=== PATIENT | female | born 1990 | race Two or more races ===

== ENCOUNTER 2017-12-03 11:22 | Emergency (ER) | payer MEDICAID ==
[~2017-12-03] VITALS: Ht 154.9 cm; Wt 45.0 kg
[~2017-12-03 11:22] MED LIST: ASEN5TAB SL; CHOL10002 PO; DIVA125T3 PO; DIVA250T6 PO; LIT300C PO; SERT100T10 PO; TOPI25TA15 PO; flovent INH
[2017-12-03 11:33] VITALS: BP 98/56
== END 2017-12-03 11:51 | disposition home or self-care (01) ==
LOC: ER 11:23
DX: S61.512D Laceration without foreign body of left wrist, subsequent encounter (principal); Z48.02 Encounter for removal of sutures; G43.909 Migraine, unspecified, not intractable, without status migrainosus; J45.909 Unspecified asthma, uncomplicated; G89.29 Other chronic pain; F12.10 Cannabis abuse, uncomplicated; Z88.2 Allergy status to sulfonamides; Z88.0 Allergy status to penicillin; Z88.1 Allergy status to other antibiotic agents; Z88.8 Allergy status to other drugs, medicaments and biological substances; Z91.018 Allergy to other foods; X78.0XXD Intentional self-harm by sharp glass, subsequent encounter
CPT/HCPCS: 99281

== ENCOUNTER 2018-06-20 17:46 | Emergency (ER) | payer MEDICAID ==
[~2018-06-20] VITALS: Ht 154.9 cm; Wt 43.6 kg
[~2018-06-20 17:46] MED LIST changes: +DIVA-74 PO; -DIVA125T3 PO; +DIVA125T31 PO; -DIVA250T6 PO
[2018-06-20] MEDS ORDERED: normal saline 1000ML IV soln IVB ONE (19:05)
[2018-06-20 19:40] LABS: CLARITY,URINE CLEAR (Clear); COLOR,URINE YELLOW (Yellow); GLUCOSE, URINE NEGATIVE (Neg); KETONES,URINE TRACE mg/dl (Neg); LEUKOCYTE ESTERASE ,URINE NEGATIVE (Neg); NITRITES, URINE NEGATIVE (Neg); OCCULT BLOOD,URINE NEGATIVE (Neg); PROTEIN,URINE NEGATIVE (Neg); UROBILINOGEN,URINE 0.2 E.U/dL (0.2-1.0)
[2018-06-20 19:41] LABS: URINE HCG NEGATIVE (NEG)
[2018-06-20 19:45] LABS: UA COLLECTION TYPE CLN CATCH MIDSTREAM
[2018-06-20 19:48] LABS: BASOPHILS % (AUTO) 0.3 % (0-1); EOSINOPHILS # (AUTO) 0.1 X10'3 (0-0.9); EOSINOPHILS % (AUTO) 0.9 % (0-6); HEMATOCRIT 30.7 % (35.0-45.0); HEMOGLOBIN 9.6 g/dl (12.0-16.0); LYMPHOCYTES # (AUTO) 0.9 X10'3 (1.1-4.8); LYMPHOCYTES % (AUTO) 13.8 % (21-51); MEAN CORPUSCULAR HEMOGLOBIN 23.2 PG (27.0-31.0); MEAN CORPUSCULAR HGB CONC 31.1 % (33.0-36.5); MEAN CORPUSCULAR VOLUME 74.4 FL (78-98); MEAN PLATELET VOLUME 10.7 FL (7.4-10.4); MONOCYTES # (AUTO) 0.5 X10'3 (0-0.9); MONOCYTES % (AUTO) 7.4 % (2-12); NEUTROPHILS # (AUTO) 5.1 X10'3 (1.8-7.7); NEUTROPHILS % (AUTO) 77.6 % (42-75); PLATELET COUNT 263 X10'3 (140-440); RED BLOOD COUNT 4.13 X10'6 (4.20-5.60); RED CELL DISTRIBUTION WIDTH 19.7 % (11.5-14.5); WHITE BLOOD COUNT 6.6 X10'3 (4.5-11.0)
[2018-06-20 19:51] LABS: URINE AMPHETAMINE SCREEN NEGATIVE (Neg); URINE BARBITUATE SCREEN NEGATIVE (Neg); URINE BENZODIAZEPINES SCREEN NEGATIVE (Neg); URINE CANNABINOID SCREEN POSITIVE (Neg); URINE COCAINE SCREEN NEGATIVE (Neg); URINE METHADONE SCREEN NEGATIVE (Neg); URINE OPIATE SCREEN NEGATIVE (Neg); URINE PHENCYCLIDINE SCREEN NEGATIVE (Neg)
[2018-06-20 20:05] LABS: ALANINE AMINOTRANSFERASE 16 U/L (12-78); ALBUMIN 3.4 G/DL (3.4-5.0); ALKALINE PHOSPHATASE 69 IU/L (46-116); ANION GAP 9 (8-16); ASPARTATE AMINO TRANSFERASE 14 U/L (10-37); BILIRUBIN,TOTAL 0.4 MG/DL (0.1-1.0); BLOOD UREA NITROGEN 9 MG/DL (7-18); BUN/CREATININE RATIO 13.6 (6.6-38.0); CALCIUM 8.3 MG/DL (8.5-10.1); CHLORIDE 107 MMOL/L (99-107); CREATININE 0.66 MG/DL (0.40-0.90); GLUCOSE 94 MG/DL (70-104); POTASSIUM 3.3 MMOL/L (3.5-5.1); SODIUM 140 MMOL/L (135-145); TOTAL CARBON DIOXIDE 23.8 MMOL/L (24-32); TOTAL PROTEIN 6.7 G/DL (6.4-8.2); eGFR > 90 ML/MIN
[2018-06-20] MEDS ORDERED: potassium Cl 20 mEq SR tablet PO STA (20:29)
[2018-06-20 20:46] VITALS: BP 145/90
[2018-06-20 22:35] LABS: ANISOCYTOSIS 2+; PLATELET ESTIMATE NORMAL
[2018-06-20 22:36] LABS: ELLIPTOCYTES 1+; TEAR DROP CELLS FEW
== END 2018-06-20 20:47 | disposition home or self-care (01) ==
LOC: ER 17:47
DX: D64.9 Anemia, unspecified (principal); P74.32 Hypokalemia of newborn; F41.9 Anxiety disorder, unspecified; M54.5 Low back pain; R10.84 Generalized abdominal pain; R11.2 Nausea with vomiting, unspecified; J45.909 Unspecified asthma, uncomplicated; G43.909 Migraine, unspecified, not intractable, without status migrainosus; F32.9 Major depressive disorder, single episode, unspecified; F12.90 Cannabis use, unspecified, uncomplicated; Z88.0 Allergy status to penicillin; Z88.1 Allergy status to other antibiotic agents; Z88.2 Allergy status to sulfonamides; Z88.8 Allergy status to other drugs, medicaments and biological substances; Z91.018 Allergy to other foods; Z79.899 Other long term (current) drug therapy
CPT/HCPCS: 36415; 80053; 80305; 81003; 81025; 85025; 96360; 99284; J7030

== ENCOUNTER 2018-08-09 18:05 | Emergency (ER) | payer MEDICAID ==
[~2018-08-09] VITALS: Ht 154.9 cm; Wt 48.0 kg
[2018-08-09] MEDS ORDERED: TETanus/Pertussis (Acell)/Diphther VAC/PF (Tdap-Adult) 0.5ml syringe IM ONE (18:15)
[2018-08-09] MEDS ORDERED: LORazepam 1 MG tablet PO ONE (18:25)
--- NOTE | 2018-08-09 18:25 | NUR ---
OFFICER ROSA M AT PT BEDSIDE GETTING REPORT. BADGE NUMBER [id number]
--- NOTE | 2018-08-09 18:29 | NUR ---
PT TO CT
[2018-08-09] MEDS ORDERED: ketorolac trometh. 30mg/ml inj. IV ONE (19:00)
[2018-08-09] MEDS ORDERED: ketorolac tromethamine 15mg/ml inj. IV ONE (19:00)
--- NOTE | 2018-08-09 19:20 | NUR ---
patients puncture wound on forehead irrigated with 50cc of NS closed with dermabond
[2018-08-09 20:18] VITALS: BP 128/78
== END 2018-08-09 20:38 | disposition home or self-care (01) ==
LOC: ER 18:06
DX: S00.03XA Contusion of scalp, initial encounter (principal); S00.81XA Abrasion of other part of head, initial encounter; M25.521 Pain in right elbow; J45.909 Unspecified asthma, uncomplicated; G89.29 Other chronic pain; F12.90 Cannabis use, unspecified, uncomplicated; Z88.0 Allergy status to penicillin; Z88.1 Allergy status to other antibiotic agents; Z88.8 Allergy status to other drugs, medicaments and biological substances; Z91.018 Allergy to other foods; Z79.899 Other long term (current) drug therapy; Y08.89XA Assault by other specified means, initial encounter; Y93.89 Activity, other specified; Y92.89 Other specified places as the place of occurrence of the external cause; Y99.8 Other external cause status
CPT/HCPCS: 12013; 29125; 70450; 72125; 73080; 73090; 90471; 90715; 96374; 99284; J1885

== ENCOUNTER 2018-10-08 09:46 | Emergency (ER) | payer MEDICAID ==
[~2018-10-08] VITALS: Ht 156.2 cm; Wt 46.1 kg
[2018-10-08 09:57] VITALS: BP 115/68
[2018-10-08] MEDS ORDERED: ibuprofen tablet 400 MG TABLET PO ONE (10:10)
[2018-10-08] MEDS ORDERED: acetaminophen 325mg tablet PO ONE (10:10)
[2018-10-08] MEDS ORDERED: ibuprofen 200mg tablet PO ONE (10:30)
== END 2018-10-08 10:41 | disposition home or self-care (01) ==
LOC: ER 09:46
DX: M79.601 Pain in right arm (principal); G43.909 Migraine, unspecified, not intractable, without status migrainosus; J45.909 Unspecified asthma, uncomplicated; G89.29 Other chronic pain; F12.90 Cannabis use, unspecified, uncomplicated; Z79.899 Other long term (current) drug therapy; Z88.0 Allergy status to penicillin; Z88.1 Allergy status to other antibiotic agents; Z88.8 Allergy status to other drugs, medicaments and biological substances; Z91.018 Allergy to other foods; Z88.2 Allergy status to sulfonamides
CPT/HCPCS: 99283

== ENCOUNTER 2018-12-16 08:09 | Emergency (ER) | payer MEDICAID ==
[~2018-12-16] VITALS: Ht 154.9 cm; Wt 46.8 kg
[~2018-12-16 08:09] MED LIST changes: +DOXY100C43 PO
[2018-12-16] MEDS ORDERED: rabies vaccine (PCEC)/PF 2.5 unit kit IM ONE (09:05)
[2018-12-16] MEDS ORDERED: ONDA8TAB6 PO (09:24)
[2018-12-16 09:49] VITALS: BP 116/81
[2018-12-19] MEDS ORDERED: METO5TAB98 PO (00:16)
== END 2018-12-16 09:53 | disposition home or self-care (01) ==
LOC: ER 08:10
DX: S61.531D Puncture wound without foreign body of right wrist, subsequent encounter (principal); Z23 Encounter for immunization; G43.909 Migraine, unspecified, not intractable, without status migrainosus; J45.909 Unspecified asthma, uncomplicated; G89.29 Other chronic pain; F12.90 Cannabis use, unspecified, uncomplicated; Z88.0 Allergy status to penicillin; Z88.2 Allergy status to sulfonamides; Z88.8 Allergy status to other drugs, medicaments and biological substances; Z91.018 Allergy to other foods; Z79.899 Other long term (current) drug therapy; W55.01XD Bitten by cat, subsequent encounter
CPT/HCPCS: 90471; 90675; 99283

== ENCOUNTER 2018-12-20 14:44 | Emergency (ER) | payer MEDICAID ==
[~2018-12-20] VITALS: Ht 154.9 cm; Wt 45.9 kg
[~2018-12-20 14:44] MED LIST changes: +METO5TAB98 PO; +ONDA8TAB6 PO
[2018-12-20 14:45] VITALS: BP 124/32
[2018-12-20] MEDS ORDERED: rabies vaccine (PCEC)/PF 2.5 unit kit IM ONE (16:15)
== END 2018-12-20 16:26 | disposition home or self-care (01) ==
LOC: ER 14:44
DX: S51.851D Open bite of right forearm, subsequent encounter (principal); Z23 Encounter for immunization; G43.909 Migraine, unspecified, not intractable, without status migrainosus; J45.909 Unspecified asthma, uncomplicated; G89.29 Other chronic pain; F17.200 Nicotine dependence, unspecified, uncomplicated; F12.90 Cannabis use, unspecified, uncomplicated; Z88.1 Allergy status to other antibiotic agents; Z88.0 Allergy status to penicillin; Z88.2 Allergy status to sulfonamides; Z91.018 Allergy to other foods; Z79.899 Other long term (current) drug therapy; W55.01XD Bitten by cat, subsequent encounter
CPT/HCPCS: 90471; 90675; 99283

== ENCOUNTER 2018-12-27 15:23 | Emergency (ER) | payer MEDICAID ==
[~2018-12-27] VITALS: Ht 154.9 cm; Wt 47.3 kg
[~2018-12-27 15:23] MED LIST changes: -DOXY100C43 PO
[2018-12-27] MEDS ORDERED: rabies vaccine (PCEC)/PF 2.5 unit kit IMVAC ONE (15:55)
[2018-12-27 16:30] VITALS: BP 117/90
== END 2018-12-27 16:32 | disposition home or self-care (01) ==
LOC: ER 15:24
DX: Z23 Encounter for immunization (principal); G89.29 Other chronic pain; J45.909 Unspecified asthma, uncomplicated; G43.909 Migraine, unspecified, not intractable, without status migrainosus; F12.90 Cannabis use, unspecified, uncomplicated; Z79.899 Other long term (current) drug therapy; Z88.0 Allergy status to penicillin; Z88.1 Allergy status to other antibiotic agents; Z88.2 Allergy status to sulfonamides; Z91.018 Allergy to other foods
CPT/HCPCS: 90471; 90675; 99283

== ENCOUNTER 2020-01-30 12:08 | Emergency (ER) | payer MEDICAID ==
[~2020-01-30] VITALS: Ht 154.9 cm; Wt 54.5 kg
[~2020-01-30 12:08] MED LIST changes: -METO5TAB98 PO
[2020-01-30 12:20] VITALS: BP 138/78
[2020-01-30] MEDS ORDERED: LACT1CAP75 PO (13:17)
[2020-01-30] MEDS ORDERED: DOXY100C76 PO (13:17)
== END 2020-01-30 13:36 | disposition home or self-care (01) ==
LOC: ER 12:09
DX: S70.361A Insect bite (nonvenomous), right thigh, initial encounter (principal); K04.7 Periapical abscess without sinus; G43.909 Migraine, unspecified, not intractable, without status migrainosus; J45.909 Unspecified asthma, uncomplicated; G89.29 Other chronic pain; F41.9 Anxiety disorder, unspecified; F32.9 Major depressive disorder, single episode, unspecified; F12.90 Cannabis use, unspecified, uncomplicated; Z88.1 Allergy status to other antibiotic agents; Z88.0 Allergy status to penicillin; Z88.8 Allergy status to other drugs, medicaments and biological substances; Z79.2 Long term (current) use of antibiotics; Z79.899 Other long term (current) drug therapy; W57.XXXA Bitten or stung by nonvenomous insect and other nonvenomous arthropods, initial encounter; Y93.89 Activity, other specified; Y92.89 Other specified places as the place of occurrence of the external cause; Y99.8 Other external cause status
CPT/HCPCS: 99283

== ENCOUNTER 2021-01-24 09:21 | Emergency (ER) | payer MEDICARE, MEDICAID ==
[~2021-01-24] VITALS: Ht 157.5 cm; Wt 59.0 kg
[~2021-01-24 09:21] MED LIST changes: +LACT1CAP75 PO; +SERT-434 PO; -SERT100T10 PO
[2021-01-24 09:34] VITALS: BP 142/83
[2021-01-24] MEDS ORDERED: CLIN150C2 PO (10:50)
[2021-01-24] MEDS ORDERED: NAPR-56 PO (10:50)
== END 2021-01-24 11:02 | disposition home or self-care (01) ==
LOC: ER 09:22
DX: K08.89 Other specified disorders of teeth and supporting structures (principal); R22.0 Localized swelling, mass and lump, head; G43.909 Migraine, unspecified, not intractable, without status migrainosus; J45.909 Unspecified asthma, uncomplicated; G89.29 Other chronic pain; F12.90 Cannabis use, unspecified, uncomplicated; Z79.2 Long term (current) use of antibiotics; Z79.899 Other long term (current) drug therapy; Z88.0 Allergy status to penicillin; Z88.1 Allergy status to other antibiotic agents; Z88.2 Allergy status to sulfonamides; Z88.8 Allergy status to other drugs, medicaments and biological substances; Z91.018 Allergy to other foods
CPT/HCPCS: 96361; 96374; 96375; 99283

== ENCOUNTER 2022-07-13 09:35 | Emergency (ER) | payer MEDICARE, MEDICAID ==
[~2022-07-13] VITALS: Ht 157.5 cm; Wt 56.0 kg
[2022-07-13 10:39] LABS: BASOPHILS % (AUTO) 0.2 % (0-1); EOSINOPHILS % (AUTO) 0 % (0-6); HEMATOCRIT 34.6 % (35.0-45.0); HEMOGLOBIN 11.1 g/dl (12.0-16.0); LYMPHOCYTES # (AUTO) 0.3 X10'3 (1.1-4.8); LYMPHOCYTES % (AUTO) 3.7 % (21-51); MEAN CORPUSCULAR HEMOGLOBIN 23.4 PG (27.0-31.0); MEAN CORPUSCULAR VOLUME 73.1 FL (78-98); MEAN PLATELET VOLUME 9.1 FL (7.4-10.4); MONOCYTES # (AUTO) 0.6 X10'3 (0-0.9); MONOCYTES % (AUTO) 8.2 % (2-12); NEUTROPHILS # (AUTO) 6.1 X10'3 (1.8-7.7); NEUTROPHILS % (AUTO) 87.9 % (42-75); PLATELET COUNT 263 X10'3 (140-440); RED BLOOD COUNT 4.74 X10'6 (4.20-5.60); RED CELL DISTRIBUTION WIDTH 18.3 % (11.5-14.5); WHITE BLOOD COUNT 6.9 X10'3 (4.5-11.0)
[2022-07-13 10:54] LABS: ALANINE AMINOTRANSFERASE 20 U/L (12-78); ALBUMIN 4.1 G/DL (3.4-5.0); ALBUMIN/GLOBULIN RATIO 0.9 (1.1-1.5); ALKALINE PHOSPHATASE 128 IU/L (46-116); ANION GAP 10 (8-16); ASPARTATE AMINO TRANSFERASE 20 U/L (10-37); BILIRUBIN,TOTAL 0.4 MG/DL (0.1-1.0); BLOOD UREA NITROGEN 7 MG/DL (7-18); BUN/CREATININE RATIO 8.2 (6.6-38.0); CALCIUM 9.5 MG/DL (8.5-10.1); CHLORIDE 97 MMOL/L (99-107); CREATININE 0.85 MG/DL (0.40-0.90); GLUCOSE 110 MG/DL (70-104); POTASSIUM 3.1 MMOL/L (3.5-5.1); SODIUM 133 MMOL/L (135-145); TOTAL CARBON DIOXIDE 26.5 MMOL/L (24-32); TOTAL PROTEIN 8.9 G/DL (6.4-8.2); eGFR 79 ML/MIN
[2022-07-13 11:25] VITALS: BP 135/81
[2022-07-13] MEDS ORDERED: acetaminophen 325mg tablet PO ONE (12:05)
[2022-07-13] MEDS ORDERED: normal saline 1000ML IV soln IVB ONE ×2 (12:05→13:10)
[2022-07-13] MEDS ORDERED: LIDOcaine Viscous 15ml cup MM STA (12:50)
[2022-07-13] MEDS ORDERED: oseltamivir phos 75mg capsule PO ONE (13:10)
[2022-07-13] MEDS ORDERED: TAM75C PO (13:41)
== END 2022-07-13 14:06 | disposition home or self-care (01) ==
LOC: ER 09:35
DX: J10.1 Influenza due to other identified influenza virus with other respiratory manifestations (principal); Z20.822 Contact with and (suspected) exposure to COVID-19; R50.9 Fever, unspecified; R05.9 Cough, unspecified; R00.0 Tachycardia, unspecified; G43.909 Migraine, unspecified, not intractable, without status migrainosus; J45.909 Unspecified asthma, uncomplicated; G89.29 Other chronic pain; F41.9 Anxiety disorder, unspecified; F32.A Depression, unspecified; F12.90 Cannabis use, unspecified, uncomplicated; Z88.1 Allergy status to other antibiotic agents; Z88.0 Allergy status to penicillin; Z88.8 Allergy status to other drugs, medicaments and biological substances; Z79.899 Other long term (current) drug therapy
CPT/HCPCS: 36415; 71045; 80053; 83880; 84484; 85025; 87502; 87503; 87635; 93005; 96360; 96361; 99285; C9803; J7030

== ENCOUNTER 2024-05-22 11:45 | Emergency (ER) | payer MEDICARE, MEDICAID ==
[~2024-05-22] VITALS: Ht 157.5 cm; Wt 64.5 kg
[2024-05-22 11:55] VITALS: BP 122/70; PULSE 84; TEMP 98.5; O2SAT 99
[2024-05-22 12:24] VITALS: RESP 16
[2024-05-22] MEDS ORDERED: AZIT250T29 PO (12:26)
== END 2024-05-22 12:41 | disposition home or self-care (01) ==
LOC: ER 11:46
DX: J01.90 Acute sinusitis, unspecified (principal); J45.909 Unspecified asthma, uncomplicated; G89.29 Other chronic pain; M54.9 Dorsalgia, unspecified; F41.9 Anxiety disorder, unspecified; F32.A Depression, unspecified; F12.90 Cannabis use, unspecified, uncomplicated; Z88.1 Allergy status to other antibiotic agents; Z88.0 Allergy status to penicillin; Z88.2 Allergy status to sulfonamides; Z91.018 Allergy to other foods; Z79.899 Other long term (current) drug therapy
CPT/HCPCS: 99283